=== PATIENT | female | born 1965 | race Caucasian/White ===

== ENCOUNTER 2020-10-23 18:12 | Observation (INO) | payer MEDICARE, OTHER ==
[~2020-10-23] VITALS: Ht 167.6 cm; Wt 79.4 kg
[~2020-10-23 18:12] MED LIST: CIPRO DROPS EARBOTH; CLONAZEPAM1 MG PO; CYANOCOBAL1000 MCG/1 INJ; ESCITALOPRAM OX10 MG PO; FLONASE 0.05% N16 GM; METOPROLOL SUCC25 MG PO; OMEPRAZOLE40 MG PO; OSTERA TABLET1 EACH PO; OXYCODONE-ACET1 EACH PO; TOPAMAX 100 MG100 MG PO; XYZAL5 MG PO
[2020-10-23 19:38] LABS: HEMOGLOBIN 13.9 gm/dl (12.3-15.3); RED BLOOD COUNT 4.29 M/UL (4.00-5.10); WHITE BLOOD COUNT 8.2 K/UL (4.5-11.0)
[2020-10-23 19:55] LABS: BUN/CREATININE RATIO 7 (0-10)
[2020-10-23] MEDS ORDERED: PLAVIX75 MG PO (20:39)
[2020-10-23] MEDS ORDERED: ESTRACE0.5 MG PO (20:40)
[2020-10-23] MEDS ORDERED: ISOSORBIDE MONO30 MG PO (20:41)
[2020-10-24] MEDS ORDERED: ATORVASTATIN CA20 MG PO (13:46)
== END 2020-10-24 14:55 | disposition home or self-care (01) ==
LOC: ER1 18:12 → CDU 20:21 → M/S 20:21
PROVIDERS: Emergency Medicine; ADMIT Internal Medicine
DX: R06.00 Dyspnea, unspecified (principal); R07.89 Other chest pain; I25.9 Chronic ischemic heart disease, unspecified; R00.2 Palpitations; F17.210 Nicotine dependence, cigarettes, uncomplicated; F41.9 Anxiety disorder, unspecified; D45 Polycythemia vera; I10 Essential (primary) hypertension; E78.5 Hyperlipidemia, unspecified; F11.20 Opioid dependence, uncomplicated; G89.4 Chronic pain syndrome; Z20.822 Contact with and (suspected) exposure to COVID-19; Z96.22 Myringotomy tube(s) status; Z79.02 Long term (current) use of antithrombotics/antiplatelets; Z79.899 Other long term (current) drug therapy; Z98.1 Arthrodesis status; Z88.2 Allergy status to sulfonamides; Z88.0 Allergy status to penicillin; Z88.6 Allergy status to analgesic agent; Z88.8 Allergy status to other drugs, medicaments and biological substances
CPT/HCPCS: ECHO; 71045; 78452; 80053; 80061; 82550; 82553; 83874; 83880; 84439; 84443; 84484; 85025; 85379; 93005; 93017; 93270; 93306; 99285; A9502; G0378; J2785; U0002

== ENCOUNTER → 2021-06-07 | Outpatient (CLI) | payer MEDICARE ==
[~2021-06-07] MED LIST changes: +ATORVASTATIN CA20 MG PO; +ESTRACE0.5 MG PO; +ISOSORBIDE MONO30 MG PO; +PLAVIX75 MG PO
== END ==
LOC: KOH-I 14:30
DX: J32.9 Chronic sinusitis, unspecified (principal)
CPT/HCPCS: 70486